=== PATIENT | male | born 1980 | race Caucasian/White ===

== ENCOUNTER 2024-03-17 02:28 | Emergency (ER) | payer OTHER ==
[2024-03-17 02:37] VITALS: BP 124/76; PULSE 79; RESP 18; TEMP 98.1; BMI 26.4
[2024-03-17] MEDS ORDERED: FLUORESCEIN NA 1 EA STRIP ONE (02:40)
[2024-03-17] MEDS ORDERED: TETRACAINE 0.5% OPHTH SOLN 2 ML BOTTLE ONE (02:40)
[2024-03-17] MEDS: TETRACAINE 0.5% HCL 0.6ML DROPPER.BOTTLE OS ONE (02:57)
[2024-03-17] MEDS ORDERED: IBUPROFEN 600 MG TABLET (FP) PO ONE ×2 (04:03→04:07)
[2024-03-17] MEDS ORDERED: ACETAMINOPHEN 325 MG TABLET (FP) ONE ×2 (04:03→04:07)
[2024-03-17] MEDS ORDERED: DEXAMETHASONE SOD PHOSPHATE 10 MG/1 ML VIAL ONE (04:03)
[2024-03-17] MEDS: IBUPROFEN 400 MG TABLET (FP) PO ONE (04:16)
[2024-03-17] MEDS: DEXAMETHASONE SOD PHOSPHATE 10 MG/1 ML VIAL IM ONE (04:16)
[2024-03-17] MEDS: ACETAMINOPHEN 325 MG TABLET (FP) PO ONE (04:16)
== END 2024-03-17 04:19 | disposition home or self-care (01) ==
LOC: JER 02:28
PROC: 3E023GC Introduction of Other Therapeutic Substance into Muscle, Percutaneous Approach (ICD-10-PCS; principal; 2024-03-17)
DX: H57.13 Ocular pain, bilateral (principal)
CPT/HCPCS: 99284-25; J1100